=== PATIENT | female | born 1985 ===

== ENCOUNTER 2018-11-18 20:26 | Emergency (ER) | payer SELFPAY ==
[2018-11-18 20:50] VITALS: RESP 20
[2018-11-18 22:25] LABS: SQUAMOUS EPITHIAL 5 /hpf (0-5); URINE BACTERIA OCC (<OCC); URINE BILIRUBIN NEGATIVE (NEGATIVE); URINE BLOOD 2+ (NEGATIVE); URINE CLARITY Hazy (Clear); URINE COLOR Yellow (YELLOW); URINE GLUCOSE (UA) NORMAL (Normal); URINE LEUKOCYTE ESTERASE 3+ Leu/uL (Negative); URINE PROTEIN NEGATIVE (NEGATIVE); URINE UROBILINOGEN NORMAL mg/dL (0.2-1.0)
--- NOTE | 2018-11-18 22:41 | C.PDOC ---
History Of Present Illness 33 year old female presents complaining of lower abdominal pain. Patient was seen by PMD today, told she has UTI, started on keflex 500mg for 10 days, she took one dose earlier today at 1400. Denies fever or vomiting. Time Seen by Provider: 11/18/18 21:25 Chief Complaint (Nursing): Abdominal Pain History Per: Patient History/Exam Limitations: no limitations Onset/Duration Of Symptoms: Hrs Current Symptoms Are (Timing): Still Present Quality Of Discomfort: Unable To Describe Associated Symptoms: Urinary Symptoms. denies: Fever, Vomiting Alleviating Factors: None Recent travel outside of the [place]: No Past Medical History Reviewed: Historical Data, Nursing Documentation, Vital Signs Vital Signs: Last Vital Signs Temp 98.8 F 11/18/18 20:46 Pulse 76 11/18/18 20:46 Resp 20 11/18/18 20:46 BP 156/103 H 11/18/18 20:46 Pulse Ox 100 11/18/18 20:46 Family History: States: Unknown Family Hx - Social History Hx Alcohol Use: No Hx Substance Use: No - Immunization History Hx Tetanus Toxoid Vaccination: No Hx Influenza Vaccination: No Hx Pneumococcal Vaccination: No Review Of Systems Except As Marked, All Systems Reviewed And Found Negative. Constitutional: Negative for: Fever, Chills Gastrointestinal: Positive for: Abdominal Pain. Negative for: Vomiting Genitourinary: Positive for: Dysuria Physical Exam - Physical Exam Appears: Non-toxic Skin: Normal Color, Warm Head: Atraumatic, Normacephalic Eye(s): bilateral: Normal Inspection Oral Mucosa: Moist Chest: Symmetrical, No Tenderness Cardiovascular: Rhythm Regular Respiratory: Normal Breath Sounds, No Accessory Muscle Use Gastrointestinal/Abdominal: Soft, Tenderness (Mild suprapubic), No Guarding, No Rebound Back: No CVA Tenderness Neurological/Psych: Oriented x3, Normal Speech ED Course And Treatment - Laboratory Results Lab Results: Urine Color Yellow (YELLOW) 11/18/18 21:39 Urine Clarity Hazy (Clear) 11/18/18 21:39 Urine pH 6.0 (5.0-8.0) 11/18/18 21:39 Ur Specific Roundup 1.024 (1.003-1.030) 11/18/18 21:39 Urine Protein Negative mg/dL (NEGATIVE) 11/18/18 21:39 Urine Glucose (UA) Normal mg/dL (Normal) 11/18/18 21:39 Urine Ketones Negative mg/dL (NEGATIVE) 11/18/18 21:39 Urine Blood 2+ (NEGATIVE) H 11/18/18 21:39 Urine Nitrate Negative (NEGATIVE) 11/18/18 21:39 Urine Bilirubin Negative (NEGATIVE) 11/18/18 21:39 Urine Urobilinogen Normal mg/dL (0.2-1.0) 11/18/18 21:39 Ur Leukocyte Esterase 3+ Chin/uL (Negative) H 11/18/18 21:39 Urine WBC (Auto) 16 /hpf (0-5) H 11/18/18 21:39 Urine RBC (Auto) 9 /hpf (0-3) H 11/18/18 21:39 Ur Squamous Epith Cells 5 /hpf (0-5) 11/18/18 21:39 Urine Bacteria Occ (<OCC) H 11/18/18 21:39 O2 Sat by Pulse Oximetry: 100 (room air) Pulse Ox Interpretation: Normal Medical Decision Making Medical Decision Making: Plan: * UA * Pyridium * Toradol Disposition Counseled Patient/Family Regarding: Diagnosis, Need For Followup, Rx Given - Disposition Referrals: YOUR,PMD [Other] Disposition: HOME/ ROUTINE Disposition Time: 22:40 Condition: IMPROVED Prescriptions: Ibuprofen [Motrin] 600 mg PO Q6 #30 tab Phenazopyridine HCl [Pyridium] 200 mg PO BID #6 tablet Instructions: Urinary Tract Infection, Adult (DC) Forms: [facility] (Uzbek), Work Excuse - Clinical Impression Clinical Impression: UTI (urinary tract infection) - Scribe Statement The provider has reviewed the documentation as recorded by the Scribyulissa Lopez All medical record entries made by the Scribe were at my direction and personally dictated by me. I have reviewed the chart and agree that the record accurately reflects my personal performance of the history, physical exam, medical decision making, and the department course for this patient. I have also personally directed, reviewed, and agree with the discharge instructions and disposition.
[2018-11-18 23:17] VITALS: BP 142/95; PULSE 78; TEMP 98.2
[2018-11-18 23:21] VITALS: O2SAT 100
== END 2018-11-18 23:20 | disposition home or self-care (01) ==
LOC: C.ER 20:26
DX: N39.0 Urinary tract infection, site not specified (principal)
CPT/HCPCS: 81001; 81025; 96374; 99285; J1885

== ENCOUNTER 2018-11-25 18:46 | Emergency (ER) | payer SELFPAY ==
[2018-11-25 19:06] VITALS: BP 159/112; PULSE 86; RESP 18; TEMP 98.2; O2SAT 100
== END 2018-11-25 20:49 | disposition left against medical advice (07) ==
LOC: C.ER 18:46
DX: Z02.89 Encounter for other administrative examinations (principal); R51 Headache